=== PATIENT | male | born 1980 | race Caucasian/White ===

== ENCOUNTER 2020-05-14 02:43 | Emergency (ER) | payer OTHER ==
[~2020-05-14] VITALS: Ht 180.3 cm; Wt 95.2 kg
[2020-05-14] MEDS ORDERED: OMEP20ER PO (03:52)
[2020-05-14] MEDS ORDERED: LISI20 PO (03:52)
== END 2020-05-14 06:20 | disposition home or self-care (01) ==
LOC: ER 02:43
DX: S51.812A Laceration without foreign body of left forearm, initial encounter (principal); S20.212A Contusion of left front wall of thorax, initial encounter; M54.5 Low back pain; K21.9 Gastro-esophageal reflux disease without esophagitis; I10 Essential (primary) hypertension; F17.200 Nicotine dependence, unspecified, uncomplicated; Z88.5 Allergy status to narcotic agent; Z79.899 Other long term (current) drug therapy; W01.0XXA Fall on same level from slipping, tripping and stumbling without subsequent striking against object, initial encounter
CPT/HCPCS: 36415; 74177; 96361; 96374-59; 96375; 99283-25; J2405; J3010; J7030; Q9967

== ENCOUNTER 2020-06-11 00:29 | Emergency (ER) | payer OTHER ==
[~2020-06-11 00:29] MED LIST: LISI20 PO; OMEP20ER PO
== END 2020-06-11 00:55 | disposition left against medical advice (07) ==
LOC: ER 00:29
DX: Z53.21 Procedure and treatment not carried out due to patient leaving prior to being seen by health care provider (principal)

== ENCOUNTER 2020-11-10 09:59 | Inpatient (IN) | payer OTHER ==
[~2020-11-10] VITALS: Ht 180.3 cm; Wt 102.8 kg
[2020-11-10 11:04] LABS: BASOPHILS ABSOLUTE AUTO 0.05 K/mm3 (0.00-0.23); BASOPHILS PERCENT AUTO 0 % (0-2); EOSINOPHILS ABSOLUTE AUTO 0.21 K/mm3 (0.00-0.68); EOSINOPHILS PERCENT AUTO 1 % (0-6); Hematocrit 45.6 % (37.0-53.0); Hemoglobin 15.7 g/dL (13.5-17.5); IMMATURE GRAN ABSOLUTE AUTO 0.08 K/mm3 (0.00-0.10); IMMATURE GRAN PERCENT AUTO 0 % (0-1); LYMPHOCYTES ABSOLUTE AUTO 1.93 K/mm3 (0.84-5.20); LYMPHOCYTES PERCENT AUTO 10 % (21-46); MONOCYTES ABSOLUTE AUTO 1.14 K/mm3 (0.16-1.47); MONOCYTES PERCENT AUTO 6 % (4-13); Mean Corpuscular HGB 32.7 pg (26.0-34.0); Mean Corpuscular HGB Conc 34.4 g/dL (31.5-36.5); Mean Corpuscular Volume 95 fL (80-100); Mean Platelet Volume 10.5 fL (9.1-12.4); NEUTROPHILS ABSOLUTE AUTO 15.57 K/mm3 (1.96-9.15); NEUTROPHILS PERCENT AUTO 82 % (41-73); Platelet Count 253 K/mm3 (150-400); RDW Coefficient Variation 12.9 % (11.7-14.2); RDW Standard Deviation 45.3 fL (35.1-46.3); White Blood Cell Count 18.98 K/mm3 (4.00-11.30)
[2020-11-10 11:22] LABS: Alanine Aminotransfer (ALT/SGP 23 U/L (12-78); Albumin, Blood 3.9 g/dL (3.4-5.0); Albumin/Globulin Ratio 0.9 (0.8-1.8); Alk Phos 110 U/L (50-136); Anion Gap 3 mmol/L (6-16); Aspartate Aminotrans (AST/SGOT 23 U/L (12-37); Bilirubin, Total 0.7 mg/dL (0.1-1.0); Blood Urea Nitrogen 10 mg/dL (8-24); CO2, Blood 28 mmol/L (21-32); Chloride, Blood 107 mmol/L (98-108); Creatinine, Blood 0.91 mg/dL (0.60-1.20); Globulin, Blood 4.3 g/dL (2.2-4.0); Glomerular Filtration Rate >60 (60-); Glucose, Blood 117 mg/dL (70-99); Potassium, Blood 3.9 mmol/L (3.5-5.5); Sodium, Blood 138 mmol/L (136-145); Total Protein, Blood 8.2 g/dL (6.4-8.2)
[2020-11-10] MEDS ORDERED: ZYRTEC10 M2 PO (11:48)
--- NOTE | 2020-11-10 15:24 | NUR ---
1422 PT ARRIVED TO ROOM 230 FROM ER ACCOMPANIED BY GRAIN BLENDER & SIGNIFICANT OTHER. ORIENTED PT AND SIGNIFICANT OTHER TO ROOM AND UNIT. VSS. PT RESTING IN BED WITH SIGNIFICANT OTHER AT BEDSIDE, PROVIDED PT AND SIGNIFICANT OTHER WITH APPROPRIATE DRINKS, CALL LIGHT WITHIN REACH. NO CONCERNING ISSUES AT THIS TIME.
[2020-11-10] MEDS ORDERED: Flonase 0.05% N16 GM INH (15:38)
[2020-11-10] MEDS ORDERED: CYCL10 PO (15:39)
[2020-11-10 16:14] LABS: Source, Urine Clean Catch
[2020-11-10 16:18] LABS: Appearance, Urine Clear (Clear); Bilirubin, Urine Neg (Neg); Blood, Urine Neg (Neg); Color, Urine Yellow (P-Yellow); Glucose Qualitative, Urine Neg (Neg); Ketones, Urine Neg (Neg); Leukocyte Esterase, Urine 1+ (Neg); Nitrite, Urine Neg (Neg); Protein, Urine Neg (Neg); Urobilinogen, Urine NORM (Normal)
[2020-11-10 16:31] LABS: Bacteria Mod /hpf; Red Blood Cells, Urine Not Seen /hpf (0-2); Squamous Epithelial Cells Rare /hpf (Few); White Blood Cells, Urine 0-2 /hpf (0-5)
--- NOTE | 2020-11-11 03:54 | NUR ---
SHIFT SUMMARY PT IS A/O X4, IND IN ROOM. TOLERATING CLEAR LIQUID DIET AND VOIDING. PAIN MANAGED WITH 0.5MG DILAUDED PER ORDER; SEE EMAR FOR ADMIN. PT REPORTS PASSING FLATUS, DENIES BM THIS SHIFT. MED FOR NAUSEA WITH PAIN MEDICATION, OTHERWISE DENIES N/V THIS SHIFT. PT RESTING IN BED AT THIS TIME, CALL LIGHT IN REACH.
[2020-11-11 04:25] LABS: BASOPHILS ABSOLUTE AUTO 0.03 K/mm3 (0.00-0.23); BASOPHILS PERCENT AUTO 0 % (0-2); EOSINOPHILS ABSOLUTE AUTO 0.23 K/mm3 (0.00-0.68); EOSINOPHILS PERCENT AUTO 2 % (0-6); Hematocrit 40.9 % (37.0-53.0); Hemoglobin 13.5 g/dL (13.5-17.5); IMMATURE GRAN ABSOLUTE AUTO 0.03 K/mm3 (0.00-0.10); IMMATURE GRAN PERCENT AUTO 0 % (0-1); LYMPHOCYTES ABSOLUTE AUTO 1.95 K/mm3 (0.84-5.20); LYMPHOCYTES PERCENT AUTO 17 % (21-46); MONOCYTES ABSOLUTE AUTO 0.77 K/mm3 (0.16-1.47); MONOCYTES PERCENT AUTO 7 % (4-13); Mean Corpuscular HGB 32.2 pg (26.0-34.0); Mean Corpuscular Volume 98 fL (80-100); Mean Platelet Volume 10.5 fL (9.1-12.4); NEUTROPHILS ABSOLUTE AUTO 8.76 K/mm3 (1.96-9.15); NEUTROPHILS PERCENT AUTO 74 % (41-73); Platelet Count 208 K/mm3 (150-400); RDW Standard Deviation 46.5 fL (35.1-46.3); Red Blood Cell Count 4.19 M/mm3 (4.30-5.90); White Blood Cell Count 11.77 K/mm3 (4.00-11.30)
[2020-11-11 04:50] LABS: Alanine Aminotransfer (ALT/SGP 16 U/L (12-78); Albumin/Globulin Ratio 0.8 (0.8-1.8); Alk Phos 84 U/L (50-136); Anion Gap 1 mmol/L (6-16); Aspartate Aminotrans (AST/SGOT 15 U/L (12-37); Bilirubin, Total 0.5 mg/dL (0.1-1.0); Blood Urea Nitrogen 8 mg/dL (8-24); Bun/Creatinine Ratio 8.4 (12.0-20.0); CO2, Blood 29 mmol/L (21-32); Calcium, Blood 8.1 mg/dL (8.5-10.1); Chloride, Blood 111 mmol/L (98-108); Creatinine, Blood 0.95 mg/dL (0.60-1.20); Globulin, Blood 3.6 g/dL (2.2-4.0); Glomerular Filtration Rate >60 (60-); Glucose, Blood 100 mg/dL (70-99); Potassium, Blood 4.3 mmol/L (3.5-5.5); Sodium, Blood 141 mmol/L (136-145); Total Protein, Blood 6.6 g/dL (6.4-8.2)
--- NOTE | 2020-11-11 16:57 | NUR ---
11/10/20 DISCHARGE: DX: DIVERTICULITIS W/ MICROPERFORATION CC: [facility] PADDY CALL: PT AT [phone] RESIDENCE: HOME CAREGIVER: SELF DX: GASTRIC PAIN, CHRONIC DIARRHEA, HTN, GERD, HYPERLIPIDEMIA, TOBACCO DEPENDENCE, SEE LIST DME: NONE CCM: NONE HOME HEALTH: NONE SUMMARY: ADMIT: 11/10/20 11/11/20- PER CHART REVIEW WITH DR. DEJESUS, PT NOT STABLE TO D/C TODAY, BUT COULD GO OVER THE WEEKEND. MET WITH PT WHO WILL BE GOING HOME AT DISCHARGE. HE WILL NEED TO GET A TAXI HOME. WILL PROVIDE THE PT WITH CONTACT INFORMATION. HIS PHARMACY IS [facility] IN [place]. HIS IS AT HOME TO HELP PROVIDE ANY CARE NEEDS. HE NEED NO DME, NO WOUND CARE SUPPLIES AND HE HAS NO CONCERNS ABOUT GOING HOME. THERE ARE NO STAIRS IN THE HOME. DISCUSSED PADDY WITH PT AND HE ACKNOWLEDGED UNDERSTANDING. -NUNO
--- NOTE | 2020-11-11 18:06 | NUR ---
SHIFT SUMMARY PT VITALS STABLE THROUGHOUT SHIFT. BEING TREATED FOR PAIN PER EMAR. PT IND IN ROOM. VOIDING AND STOOLING WELL. PASSING FLATTUS. NO NAUSEA OR VOMITING REPORTED. WILL REPORT TO ONCOMING RN.
--- NOTE | 2020-11-11 21:45 | NUR ---
CALLED DR STEINBERG AND REPORTED IV SITE OBTAINED.DCD PO ANTIBIOTICS AND REORDERED IV ANTIBIOTICS. ALSO NOTIFIED PT C/O INCREASED PAIN AFTER REPORTING INTAKE OF LACTOSE TODAY.PT UPSET, QUESTIONING WANTING CT SCANS DAILY TO FOLLOW IMPROVEMENT. I ADVISED DR STEINBERG OF ABOVE.DOCTOR VERB HE WOULD NOT ORDER CT AT THIS TIME AND WOULD RE-EVALUATE PT TOMORROW.
--- NOTE | 2020-11-12 02:20 | NUR ---
PT HAD BM AND FLATUS AND RECEIVED TORADOL,ZOFRAN, AND DILAUDID WITH REPORT OF PAIN RESOLVED.PT REMAINS NPO AFTER MIDNOC.
[2020-11-12 04:11] LABS: BASOPHILS ABSOLUTE AUTO 0.03 K/mm3 (0.00-0.23); BASOPHILS PERCENT AUTO 0 % (0-2); EOSINOPHILS PERCENT AUTO 2 % (0-6); Hemoglobin 13.4 g/dL (13.5-17.5); IMMATURE GRAN ABSOLUTE AUTO 0.04 K/mm3 (0.00-0.10); IMMATURE GRAN PERCENT AUTO 0 % (0-1); LYMPHOCYTES PERCENT AUTO 15 % (21-46); MONOCYTES PERCENT AUTO 6 % (4-13); Mean Corpuscular HGB 32.4 pg (26.0-34.0); Mean Corpuscular HGB Conc 33.5 g/dL (31.5-36.5); Mean Corpuscular Volume 97 fL (80-100); Mean Platelet Volume 10.4 fL (9.1-12.4); NEUTROPHILS ABSOLUTE AUTO 10.26 K/mm3 (1.96-9.15); NEUTROPHILS PERCENT AUTO 77 % (41-73); Platelet Count 210 K/mm3 (150-400); RDW Coefficient Variation 12.6 % (11.7-14.2); RDW Standard Deviation 44.7 fL (35.1-46.3); Red Blood Cell Count 4.13 M/mm3 (4.30-5.90); White Blood Cell Count 13.33 K/mm3 (4.00-11.30)
--- NOTE | 2020-11-12 07:19 | NUR ---
SUMMARY PT REPORTS HE FEELS MUH BETTER THIS AM. REPORTS ISSUES R/T LACTOSE. I PLACED LACTOSE INTOLERANCE ON PTS ADMIT.ALSO NOTED ON DIETARY ORDER.PT WITH QUESTIONS REGARDING DIETARY NEEDS AT HOME. DIETARY CX ORDERED.
--- NOTE | 2020-11-12 18:34 | NUR ---
SHIFT SUMMARY PT A/O X4; COOPERATIVE WITH CARE AND IND IN THE ROOM. PT REPORTS FEELING MUCH BETTER TODAY AND IS TOLERATING PO INTAKE WELL. PER PHYSICIAN NO SURGERY IS CURRENTLY NEEDED AND HE WILL BE TREATED WITH ANTIBIOTICS. VSS.
[2020-11-13 04:25] LABS: BASOPHILS ABSOLUTE AUTO 0.02 K/mm3 (0.00-0.23); BASOPHILS PERCENT AUTO 0 % (0-2); EOSINOPHILS ABSOLUTE AUTO 0.21 K/mm3 (0.00-0.68); EOSINOPHILS PERCENT AUTO 2 % (0-6); Hematocrit 41.5 % (37.0-53.0); Hemoglobin 13.9 g/dL (13.5-17.5); IMMATURE GRAN ABSOLUTE AUTO 0.04 K/mm3 (0.00-0.10); IMMATURE GRAN PERCENT AUTO 0 % (0-1); LYMPHOCYTES ABSOLUTE AUTO 1.94 K/mm3 (0.84-5.20); LYMPHOCYTES PERCENT AUTO 16 % (21-46); MONOCYTES ABSOLUTE AUTO 0.88 K/mm3 (0.16-1.47); MONOCYTES PERCENT AUTO 7 % (4-13); Mean Corpuscular HGB 31.8 pg (26.0-34.0); Mean Corpuscular HGB Conc 33.5 g/dL (31.5-36.5); Mean Corpuscular Volume 95 fL (80-100); Mean Platelet Volume 10.4 fL (9.1-12.4); NEUTROPHILS ABSOLUTE AUTO 9.09 K/mm3 (1.96-9.15); NEUTROPHILS PERCENT AUTO 75 % (41-73); Platelet Count 229 K/mm3 (150-400); RDW Coefficient Variation 12.2 % (11.7-14.2); RDW Standard Deviation 42.4 fL (35.1-46.3); Red Blood Cell Count 4.37 M/mm3 (4.30-5.90); White Blood Cell Count 12.18 K/mm3 (4.00-11.30)
--- NOTE | 2020-11-13 06:30 | NUR ---
SHIFT SUMMARY LYING IN LOW FOWLERS WITH EYES CLOSED. PAIN MANAGED PER EMAR. NO FURTHER CHANGES NOTED THIS SHIFT. RIGHT ARM PIV IS PATENT, FLUSHES WITH EASE WHILE INFUSING NS AT TKO. DENIES FURTHER NEEDS OR WANTS AT THIS TIME. SAFETY MEASURES IN PLACE. WILL CONTINUE TO MONITOR AND ADDRESS CHANGES AND NEEDS THEY OCCUR. WILL GIVE HAND OFF TO ONCOMING SHIFT USING SBAR DURING BEDSIDE REPORT.
[2020-11-13] MEDS ORDERED: ACET325 PO (10:37)
[2020-11-13] MEDS ORDERED: METAMUCIL POWD575 GM PO (10:38)
[2020-11-13] MEDS ORDERED: AMOX875 PO (10:40)
--- NOTE | 2020-11-13 11:40 | NUR ---
DISCHARGE: PACKET PRINTED AND PT EDUCATED. NO SCRIPTS NEEDED. PT VERBALIZED UNDERSTANDING. PT PULLED OUT OWN IV WITHOUT RN SUPPERVISION, NO BLEED NOTED. PER DR. DEJESUS, PT ABLE TO DISCHARGE NOW AND NOT WAIT TIL 1400. PT LEFT UNIT ON FOOT AT ABOUT 1100.
--- NOTE | 2020-11-13 15:21 | NUR ---
[facility]
== END 2020-11-13 11:05 | disposition home or self-care (01) | DRG 392 ==
LOC: ER 09:59 → SURS 10:00
PROVIDERS: Emergency Medicine; Internal Medicine; Surgery; ADMIT Family Medicine
DX: K57.20 Diverticulitis of large intestine with perforation and abscess without bleeding (principal); J30.9 Allergic rhinitis, unspecified; I10 Essential (primary) hypertension; K21.9 Gastro-esophageal reflux disease without esophagitis; F17.211 Nicotine dependence, cigarettes, in remission; Z79.899 Other long term (current) drug therapy
CPT/HCPCS: 36415; 74176; 80053; 81001; 83690; 85025; 87086; 96361; 96366; 96372; 96374; 96375; 96376; 99285-25; A9270; G0378; J1170; J1650; J1885; J2405; J2543; J3010; J7030

== ENCOUNTER 2022-03-13 06:08 | Day surgery (SDC) | payer OTHER ==
[~2022-03-13] VITALS: Ht 180.3 cm; Wt 110.1 kg
[~2022-03-13 06:08] MED LIST changes: +ACET325 PO; +AMOX875 PO; +CYCL10 PO; +Flonase 0.05% N16 GM INH; +METAMUCIL POWD575 GM PO; +OMEP20ER; +ZYRTEC10 M2 PO
== END 2022-03-13 08:25 | disposition home or self-care (01) ==
LOC: ORSCSDS 06:08
PROVIDERS: Orthopaedic Surgery
PROC: 01N50ZZ Release Median Nerve, Open Approach (ICD-10-PCS; principal; 2022-03-13 07:30)
DX: G56.03 Carpal tunnel syndrome, bilateral upper limbs (principal); I10 Essential (primary) hypertension; Z87.891 Personal history of nicotine dependence; K21.9 Gastro-esophageal reflux disease without esophagitis; Z79.899 Other long term (current) drug therapy
CPT/HCPCS: J2250; J2704; J3010; J7120

== ENCOUNTER → 2023-06-08 | Outpatient (CLI) | payer OTHER | LOC: LAB 10:29 → LAB SHORT 10:29 | DX: L60.3 Nail dystrophy (principal) | CPT/HCPCS: 88305; 88312 ==

== ENCOUNTER → 2024-08-18 | Outpatient (CLI) | payer OTHER ==
[2024-08-18 11:23] LABS: White Blood Cell Count 5.94 K/mm3 (4.00-11.30)
[2024-08-18 11:24] LABS: BASOPHILS ABSOLUTE AUTO 0.02 K/mm3 (0.00-0.23); BASOPHILS PERCENT AUTO 0 % (0-2); EOSINOPHILS ABSOLUTE AUTO 0.05 K/mm3 (0.00-0.68); EOSINOPHILS PERCENT AUTO 1 % (0-6); Hematocrit 41.8 % (37.0-53.0); Hemoglobin 14.7 g/dL (13.5-17.5); IMMATURE GRAN ABSOLUTE AUTO 0.03 K/mm3 (0.00-0.10); IMMATURE GRAN PERCENT AUTO 1 % (0-1); LYMPHOCYTES ABSOLUTE AUTO 0.95 K/mm3 (0.84-5.20); LYMPHOCYTES PERCENT AUTO 16 % (21-46); MONOCYTES ABSOLUTE AUTO 0.56 K/mm3 (0.16-1.47); MONOCYTES PERCENT AUTO 9 % (4-13); Mean Corpuscular HGB 32.9 pg (26.0-34.0); Mean Corpuscular HGB Conc 35.2 g/dL (31.5-36.5); Mean Corpuscular Volume 94 fL (80-100); Mean Platelet Volume 9.6 fL (9.1-12.4); NEUTROPHILS ABSOLUTE AUTO 4.33 K/mm3 (1.96-9.15); NEUTROPHILS PERCENT AUTO 73 % (41-73); Platelet Count 197 K/mm3 (150-400); RDW Coefficient Variation 12.3 % (11.7-14.2); RDW Standard Deviation 42.4 fL (35.1-46.3); Red Blood Cell Count 4.47 M/mm3 (4.30-5.90)
[2024-08-18 11:43] LABS: Albumin, Blood 3.9 g/dL (3.4-5.0); Bilirubin, Total 0.4 mg/dL (0.1-1.0); Bun/Creatinine Ratio 14.7 (12.0-20.0); Calcium, Blood 8.9 mg/dL (8.5-10.1); Creatinine, Blood 0.95 mg/dL (0.60-1.20); Globulin, Blood 3.9 g/dL (2.2-4.0); Potassium, Blood 3.5 mmol/L (3.5-5.5); Total Protein, Blood 7.8 g/dL (6.4-8.2)
== END ==
LOC: LAB 10:50 → LAB SHORT 10:50
PROVIDERS: Physician Assistant Medical
DX: R10.10 Upper abdominal pain, unspecified (principal)
CPT/HCPCS: 80053; 83690; 85025

== ENCOUNTER → 2025-01-18 | Outpatient (CLI) | payer OTHER ==
[2025-01-18 13:06] LABS: Campylobacter Sp Not Detected (NOT DETECT); E. Coli O157 Not Detected (NOT DETECT); Enteroaggregative E. coli-EAEC Not Detected (NOT DETECT); Enteropathogenic E. coli-EPEC Not Detected (NOT DETECT); Enterotoxigenic E. coli-ETEC Not Detected (NOT DETECT); Salmonella Sp Not Detected (NOT DETECT); Shiga Toxin-prod E. coli-STEC Not Detected (NOT DETECT); Shigella/Enteroin E. coli-EIEC Not Detected (NOT DETECT); Vibrio Sp Not Detected (NOT DETECT)
[2025-01-20 19:00] LABS: CALPROTECTIN,FECAL 31 ug/g (<=49)
== END ==
LOC: LAB 07:40 → LAB SHORT 07:40
PROVIDERS: Family Medicine
DX: R19.7 Diarrhea, unspecified (principal)
CPT/HCPCS: 87507

== ENCOUNTER → 2025-04-03 | Outpatient (CLI) | payer OTHER | LOC: LAB 07:34 → LAB SHORT 07:34 | DX: R23.4 Changes in skin texture (principal); B07.8 Other viral warts | CPT/HCPCS: 88305 ==

== ENCOUNTER 2025-06-29 14:49 | Emergency (ER) | payer OTHER ==
[~2025-06-29] VITALS: Ht 177.8 cm; Wt 113.4 kg
[2025-06-29] MEDS ORDERED: Ketorolac Tromethamine 30mg Vial IV ONE (15:40)
[2025-06-29] MEDS ORDERED: Ondansetron HCl 2 MG / ML 2ML Vial IV ONE ×2 (15:40→18:10)
[2025-06-29 16:54] LABS: Alanine Aminotransfer (ALT/SGP 33.0 U/L (12-78); Albumin, Blood 3.4 g/dL (3.4-5.0); Albumin/Globulin Ratio 0.8 (0.8-1.8); Anion Gap 12.0 mmol/L (3-11); Aspartate Aminotrans (AST/SGOT 34.0 U/L (12-37); Bilirubin, Total 0.6 mg/dL (0.1-1.0); Blood Urea Nitrogen 16.0 mg/dL (8-24); CO2, Blood 21.0 mmol/L (21-32); Calcium, Blood 9.4 mg/dL (8.5-10.1); Chloride, Blood 100.0 mmol/L (98-108); Creatinine, Blood 0.88 mg/dL (0.60-1.20); Globulin, Blood 4.1 g/dL (2.2-4.0); Glucose, Blood 106.0 mg/dL (70-99); Potassium, Blood 3.9 mmol/L (3.5-5.5); Sodium, Blood 129.0 mmol/L (136-145); Total Protein, Blood 7.5 g/dL (6.4-8.2)
[2025-06-29 17:27] LABS: BASOPHILS ABSOLUTE AUTO 0.09 K/mm3 (0.00-0.23); BASOPHILS PERCENT AUTO 1 % (0-2); EOSINOPHILS ABSOLUTE AUTO 0.07 K/mm3 (0.00-0.68); EOSINOPHILS PERCENT AUTO 1 % (0-6); Hematocrit 47.7 % (37.0-53.0); Hemoglobin 16.9 g/dL (13.5-17.5); IMMATURE GRAN ABSOLUTE AUTO 0.18 K/mm3 (0.00-0.10); IMMATURE GRAN PERCENT AUTO 1 % (0-1); LYMPHOCYTES ABSOLUTE AUTO 1.73 K/mm3 (0.84-5.20); LYMPHOCYTES PERCENT AUTO 12 % (21-46); MONOCYTES ABSOLUTE AUTO 0.82 K/mm3 (0.16-1.47); MONOCYTES PERCENT AUTO 6 % (4-13); Mean Corpuscular HGB Conc 35.4 g/dL (31.5-36.5); Mean Corpuscular Volume 95 fL (80-100); NEUTROPHILS ABSOLUTE AUTO 11.47 K/mm3 (1.96-9.15); NEUTROPHILS PERCENT AUTO 80 % (41-73); NRBC ABSOLUTE 0.00 K/mm3 (0.00-0.02); NRBC Auto 0.0 /100 WBC (0.0-0.2); RDW Coefficient Variation 13.2 % (11.7-14.2); RDW Standard Deviation 46.0 fL (35.1-46.3)
[2025-06-29] MEDS ORDERED: NS 1,000 ML IV SCH (17:40)
[2025-06-29] MEDS ORDERED: AMLODIPINE BESYL5 MG PO (18:05)
[2025-06-29] MEDS ORDERED: Cyclobenzaprine5 MG PO (18:06)
[2025-06-29] MEDS ORDERED: Omeprazole20 M1 PO (18:07)
[2025-06-29] MEDS ORDERED: Lidocaine 2% Viscous Soln 15 ML UDC PO ONE (18:10)
[2025-06-29] MEDS ORDERED: FentaNYL Citrate 50 MCG/ML 2 ML Injection IV ONE (18:10)
[2025-06-29] MEDS ORDERED: RX Prepack 2 Tabs Ondansetron ODT 4MG UD ONE (18:15)
[2025-06-29] MEDS ORDERED: RX Prepack 6 Tabs Oxycodone 5mg UD ONE (18:15)
[2025-06-29] MEDS ORDERED: AMOCLA875 PO (19:24)
[2025-06-29] MEDS ORDERED: OxyCODONE 5 mg/Acetamin 325 mg TABLET PO ONE (19:30)
[2025-06-29] MEDS ORDERED: OXAYDO5 M1 PO (19:37)
[2025-06-29 20:28] VITALS: BP 171/107
== END 2025-06-29 20:29 | disposition home or self-care (01) ==
LOC: ER 14:49
PROVIDERS: Student in an Organized Health Care Education/Training Program
DX: K57.32 Diverticulitis of large intestine without perforation or abscess without bleeding (principal); K29.70 Gastritis, unspecified, without bleeding; E87.1 Hypo-osmolality and hyponatremia; D72.829 Elevated white blood cell count, unspecified; R00.0 Tachycardia, unspecified; K21.9 Gastro-esophageal reflux disease without esophagitis; I10 Essential (primary) hypertension; F17.200 Nicotine dependence, unspecified, uncomplicated; Z79.899 Other long term (current) drug therapy; Z88.8 Allergy status to other drugs, medicaments and biological substances
CPT/HCPCS: 74177; 80053; 83605; 83690; 84484; 85025; 93005; 93010; 96361; 96374; 96375; 99284-25; A9270; J1885; J2405; J3010; J7030; Q9967